=== PATIENT | male | born 1970 | race Caucasian/White ===

== ENCOUNTER 2018-09-08 19:19 | Inpatient (IN) | payer OTHER ==
[~2018-09-08] VITALS: Ht 180.3 cm; Wt 79.8 kg
[2018-09-12] MEDS ORDERED: PERCOCET 5-3251 EACH PO (10:16)
[2018-09-12] MEDS ORDERED: DICLOFENAC POTA50 MG PO (10:16)
[2018-09-12] MEDS ORDERED: POLY119PG PO (10:16)
[2018-09-12] MEDS ORDERED: COLACE100 MG PO (10:16)
== END 2018-09-12 12:06 | disposition home or self-care (01) | DRG 348 ==
LOC: ER 19:19 → SURG 23:17 → EDSEX 23:17 → SURG 09-12 12:06
PROVIDERS: Surgery
PROC: 3E0T3BZ Introduction of Anesthetic Agent into Peripheral Nerves and Plexi, Percutaneous Approach (ICD-10-PCS; 2018-09-09)
PROC: 06BY0ZC Excision of Hemorrhoidal Plexus, Open Approach (ICD-10-PCS; principal; 2018-09-09 10:00)
DX: K64.3 Fourth degree hemorrhoids (principal); K62.5 Hemorrhage of anus and rectum; K62.89 Other specified diseases of anus and rectum; K59.09 Other constipation